=== PATIENT | female | born 1975 | race Caucasian/White ===

== ENCOUNTER 2017-03-08 22:11 | Inpatient (IN) | payer OTHER, MEDICAID ==
[~2017-03-08] VITALS: Ht 162.6 cm; Wt 55.5 kg
[~2017-03-08 22:11] MED LIST: CARV3.12 PO; CARV3.122 PO; CLOP75TA PO; DIGO0.25 PO; DIGO250T PO; FURO-69 PO; FURO40TA4 PO; HYDR-2666 PO; IPRA4AER; NAPR375T3 PO; PANT40TA3 PO; POTA20TA84 PO; POTA40LI3 PO; SILD25TA PO; ZOLP5TAB5 PO
[2017-03-08 23:04] LABS: BASO % 1 % (0-3); EOS % 3 % (0-3); HEMATOCRIT 40.6 % (36.0-47.0); HEMOGLOBIN 14.3 g/dL (12.0-15.5); LYMPH # 2.3 x10^3/uL (1.0-4.8); LYMPH % 24 % (24-48); MEAN CORPUSCULAR HEMOGLOBIN 30 pg (25-35); MEAN CORPUSCULAR HGB CONC 35 g/dL (31-37); MEAN CORPUSCULAR VOLUME 84 fL (79-100); MONO % 12 % (0-9); NEUT % 62 % (31-73); PLATELET COUNT 375 x10^3/uL (140-400); RED BLOOD COUNT 4.84 x10^6/uL (3.50-5.40); RED CELL DISTRIBUTION WIDTH 12.6 % (11.5-14.5); WHITE BLOOD COUNT 9.8 x10^3/uL (4.0-11.0)
--- NOTE | 2017-03-08 23:04 | PHYS DOC ---
Past Medical History Past Medical History: CHF, High Cholesterol, Heart Disease, Vascular Disease, Other Additional Past Medical Histor: CONGENTIAL CARDIAC DEFECT Past Surgical History: Other Additional Past Surgical Histo: CORATATION OF AORTA Alcohol Use: Rarely Drug Use: None Adult General Chief Complaint Chief Complaint: Congestion HPI HPI Patient is a 42 year old female with a significant cardiac history presents with a four-day history of shortness of breath and chest pain. Patient sees Dr. Espino who treated the patient earlier in the week for possible pneumonia with a Z-Donnie. Dr. Espino at the patient in the emergency room for further evaluation and management. She denies any fevers or chills. She has no other complaints. Pertinent physical exam findings: Coarse breath sounds bilaterally 5/6 MEL ED course: Septic workup, EKG, chest x-ray, troponin ordered 2244: EKG NSR 76 no STEMI 2230: Discussed lab results and chest x-ray with the patient and explained to her that we admit her to the hospital 2335: Page Dr. Espino 2341: discussed CC/HPI/PMH with Dr. Espino who will admit Pertinent findings: Right middle lobe pneumonia ED medical decision-making: After reviewing the chart, CC/HPI/PMH, PE, Labs, CXR I believe the patient has acute right middle lobe pneumonia however is not septic but given her negative cardiac history or minute for IV antibiotics. Review of Systems Review of Systems Constitutional: Denies fever or chills [] Eyes: Denies change in visual acuity, redness, or eye pain [] HENT: Denies nasal congestion or sore throat [] Respiratory: SOA Cardiovascular: No additional information not addressed in HPI [] GI: Denies abdominal pain, nausea, vomiting, bloody stools or diarrhea [] : Denies dysuria or hematuria [] Musculoskeletal: Denies back pain or joint pain [] Integument: Denies rash or skin lesions [] Current Medications Current Medications Current Medications Medications (Trade) Dose Ordered Sig/Delmis Start Time Stop Time Status Last Admin Dose Admin Fentanyl Citrate (Fentanyl 2ml Vial) 50 mcg 1X ONCE 03/08/17 23:30 03/08/17 23:31 DC 03/08/17 23:33 50 MCG Levofloxacin/ Dextrose 150 ml @ 100 mls/hr 1X ONCE 03/09/17 00:00 03/09/17 01:29 Morphine Sulfate 4 mg PRN Q2HR PRN 03/08/17 23:45 03/09/17 23:44 Ondansetron HCl (Zofran) 4 mg PRN Q8HRS PRN 03/08/17 23:45 03/09/17 23:44 Allergies Allergies Allergies Coded Allergies Type Severity Reaction Last Updated Verified No Known Drug Allergies 04/02/14 No Physical Exam Physical Exam Constitutional: Well developed, well nourished, no acute distress, non-toxic appearance. [] HENT: Normocephalic, atraumatic, bilateral external ears normal, oropharynx moist, no oral exudates, nose normal. [] Eyes: PERRLA, EOMI, conjunctiva normal, no discharge. [] Neck: Normal range of motion, no tenderness, supple, no stridor. [] Cardiovascular:5/6 murmur with regular rate and rhythm [] Lungs & Thorax: Coarse breath sounds bilaterally [] Abdomen: Bowel sounds normal, soft, no tenderness, no masses, no pulsatile masses. [] Skin: Warm, dry, no erythema, no rash. [] Back: No tenderness, no CVA tenderness. [] Extremities: No tenderness, no cyanosis, no clubbing, ROM intact, no edema. [] Neurologic: Alert and oriented X 3, normal motor function, normal sensory function, no focal deficits noted. [] Psychologic: Affect normal, judgement normal, mood normal. [] Current Patient Data Vital Signs Vital Signs Date Time Temp Pulse Resp B/P (MAP) Pulse Ox O2 Delivery O2 Flow Rate FiO2 03/08/17 22:27 98.4 81 18 116/68 (84) 97 Room Air 98.4 Lab Values Laboratory Tests Test 03/08/17 22:58 03/08/17 23:13 White Blood Count 9.8 x10^3/uL (4.0-11.0) Red Blood Count 4.84 x10^6/uL (3.50-5.40) Hemoglobin 14.3 g/dL (12.0-15.5) Hematocrit 40.6 % (36.0-47.0) Mean Corpuscular Volume 84 fL (79-100) Mean Corpuscular Hemoglobin 30 pg (25-35) Mean Corpuscular Hemoglobin Concent 35 g/dL (31-37) Red Cell Distribution Width 12.6 % (11.5-14.5) Platelet Count 375 x10^3/uL (140-400) Neutrophils (%) (Auto) 62 % (31-73) Lymphocytes (%) (Auto) 24 % (24-48) Monocytes (%) (Auto) 12 % (0-9) H Eosinophils (%) (Auto) 3 % (0-3) Basophils (%) (Auto) 1 % (0-3) Neutrophils # (Auto) 6.0 x10^3uL (1.8-7.7) Lymphocytes # (Auto) 2.3 x10^3/uL (1.0-4.8) Monocytes # (Auto) 1.1 x10^3/uL (0.0-1.1) Eosinophils # (Auto) 0.3 x10^3/uL (0.0-0.7) Basophils # (Auto) 0.0 x10^3/uL (0.0-0.2) Sodium Level 137 mmol/L (136-145) Potassium Level 3.2 mmol/L (3.5-5.1) L Chloride Level 98 mmol/L (98-107) Carbon Dioxide Level 27 mmol/L (21-32) Anion Gap 12 (6-14) Blood Urea Nitrogen 19 mg/dL (7-20) Creatinine 0.7 mg/dL (0.6-1.0) Estimated GFR (Cockcroft-Gault) 91.8 BUN/Creatinine Ratio 27 (6-20) H Glucose Level 114 mg/dL (70-99) H Calcium Level 9.9 mg/dL (8.5-10.1) Total Bilirubin 1.7 mg/dL (0.2-1.0) H Aspartate Amino Transferase (AST) 15 U/L (15-37) Alanine Aminotransferase (ALT) 18 U/L (14-59) Alkaline Phosphatase 62 U/L (46-116) Troponin I Quantitative < 0.017 ng/mL (0.000-0.055) PD-Alc-C-Type Natriuretic Peptide 237 pg/mL (0-124) H Total Protein 8.5 g/dL (6.4-8.2) H Albumin 3.9 g/dL (3.4-5.0) Albumin/Globulin Ratio 0.8 (1.0-1.7) L Urine Collection Type Unknown Urine Color Yellow Urine Clarity Clear Urine pH 5.5 Urine Specific [place] 1.025 Urine Protein Negative mg/dL (NEG-TRACE) Urine Glucose (UA) Negative mg/dL (NEG) Urine Ketones (Stick) Negative mg/dL (NEG) Urine Blood Trace (NEG) Urine Nitrite Negative (NEG) Urine Bilirubin Negative (NEG) Urine Urobilinogen Dipstick 0.2 mg/dL (0.2 mg/dL) Urine Leukocyte Esterase Negative (NEG) Urine RBC 0 /HPF (0-2) Urine WBC 1-4 /HPF (0-4) Urine Squamous Epithelial Cells Mod /LPF Urine Bacteria Few /HPF (0-FEW) Urine Mucus Marked /LPF Laboratory Tests 03/08/17 22:58 Laboratory Tests 03/08/17 22:58 EKG EKG NRS 76 no STEMI[] Radiology/Procedures Radiology/Procedures 2V CXR Right perihilar infiltrates [] Course & Med Decision Making Course & Med Decision Making Pertinent Labs and Imaging studies reviewed. (See chart for details) [] Dragon Disclaimer Dragon Disclaimer This electronic medical record was generated, in whole or in part, using a voice recognition dictation system. Departure Departure Impression: Primary Impression: Right middle lobe pneumonia Additional Impression: Chest pain Admitting Physician: Rd Espino Condition: IMPROVED Referrals: RD ESPINO MD (PCP) Problem Qualifiers Primary Impression: Right middle lobe pneumonia Pneumonia type: due to unspecified organism Qualified Codes: J18.1 - Lobar pneumonia, unspecified organism Additional Impression: Chest pain Chest pain type: unspecified Qualified Codes: R07.9 - Chest pain, unspecified BRUNO RUSHING DO March 08, 2017 23:04
[2017-03-08 23:14] LABS: CALCIUM 9.9 mg/dL (8.5-10.1); CREATININE 0.7 mg/dL (0.6-1.0); GFR 91.8; POTASSIUM 3.2 mmol/L (3.5-5.1)
[2017-03-08 23:20] LABS: ALBUMIN 3.9 g/dL (3.4-5.0); ALBUMIN/GLOBULIN RATIO 0.8 (1.0-1.7); TOTAL BILIRUBIN 1.7 mg/dL (0.2-1.0); TOTAL PROTEIN 8.5 g/dL (6.4-8.2)
[2017-03-08 23:29] LABS: BILIRUBIN,URINE NEGATIVE (NEG); GLUCOSE,URINE NEGATIVE (NEG); NITRITE,URINE NEGATIVE (NEG); PH,URINE 5.5; PROTEIN,URINE NEGATIVE (NEG-TRACE); UROBILINOGEN,URINE 0.2 mg/dL (0.2 mg/dL)
[2017-03-08] MEDS ORDERED: fentaNYL PF VIAL 100 MCG/2 ML VIAL IV ONE (23:30)
[2017-03-08 23:34] LABS: BACTERIA,URINE FEW /HPF (0-FEW); RBC,URINE 0 /HPF (0-2); SQUAMOUS EPITHELIAL CELL,UR MOD /LPF
[2017-03-09] MEDS: MORPHINE SULFATE 4 MG/ML DISP.SYRIN. IV PRN ×4 (00:51→20:15)
[2017-03-09] MEDS: ONDANSETRON PF 4 MG/2 ML VIAL. IV PRN ×3 (02:38→20:16)
[2017-03-09 03:45] VITALS: BP 100/50
[2017-03-09 05:37] LABS: BASO # 0.1 x10^3/uL (0.0-0.2); BASO % 1 % (0-3); EOS % 4 % (0-3); HEMATOCRIT 38.1 % (36.0-47.0); HEMOGLOBIN 13.4 g/dL (12.0-15.5); LYMPH # 2.2 x10^3/uL (1.0-4.8); LYMPH % 25 % (24-48); MEAN CORPUSCULAR HEMOGLOBIN 30 pg (25-35); MEAN CORPUSCULAR HGB CONC 35 g/dL (31-37); MEAN CORPUSCULAR VOLUME 84 fL (79-100); MONO % 14 % (0-9); NEUT % 57 % (31-73); PLATELET COUNT 326 x10^3/uL (140-400); RED BLOOD COUNT 4.53 x10^6/uL (3.50-5.40); RED CELL DISTRIBUTION WIDTH 12.8 % (11.5-14.5); WHITE BLOOD COUNT 8.5 x10^3/uL (4.0-11.0)
[2017-03-09 05:59] LABS: CALCIUM 9.6 mg/dL (8.5-10.1); CREATININE 0.7 mg/dL (0.6-1.0); GFR 91.8; POTASSIUM 3.5 mmol/L (3.5-5.1)
--- NOTE | 2017-03-09 06:51 | EKG ---
[facility] [address] [place] [address] Test Date: 2017-03-08 Test Time: 22:42:44 Pat Name: ANJU ANGEL Department: Room: 211 1 Gender: F Erp Implementation Consultant: : 1975 Requested By: BRUNO RUSHING Order Number: [id number] Reading MD: Ludwin Basilio Measurements Intervals [place] Rate: 76 P: -12 MT: 200 QRS: -68 QRSD: 176 T: 106 QT: 436 QTc: 495 Interpretive Statements SINUS RHYTHM V-PACING Electronically Signed On 03-11-2017 9:53:43 CDT by Ludwin Basilio
[2017-03-09 07:50] VITALS: BP 111/61
--- NOTE | 2017-03-09 08:03 | RAD ---
EXAM: CHEST 2 VIEWS History: Shortness of breath Comparison: 11/16/2016 TECHNIQUE: PA and lateral chest radiographs FINDINGS: Left-sided cardiac pacer is unchanged. The cardiomediastinal silhouette is within normal limits. The lungs are clear bilaterally. The costophrenic sulci are clear and well demarcated bilaterally. IMPRESSION: No radiographic evidence of an acute cardiopulmonary abnormality.
[2017-03-09 11:40] VITALS: BP 102/66
--- NOTE | 2017-03-09 11:56 | PDOC ---
Provider Note Provider Note [id number] dyspnea cough acute bronchitis acute bronchodilator see orders HANSA LAZO MD March 09, 2017 11:56
[2017-03-09] MEDS: IPRATROPIUM BROMIDE 0.5 MG/2.5 ML NEBU. NEB SCH ×3 (12:04→19:34)
[2017-03-09] MEDS: BUDESONIDE 0.5 MG/2 ML NEBU. NEB SCH ×2 (12:04→19:35)
--- NOTE | 2017-03-09 12:09 | PDOC1 ---
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 Due to this she has severe pulmonary hypertension and is being currently evaluated for a future heart transplant. The patient is active and she is a nonsmoker. 4 days ago she was having problems with cough fever or chills and shortness of breath and was started on Levaquin. This did not help at all and she is actually getting worse to the point that yesterday she had to come to the emergency room due to severe dyspnea and respiratory distress and with progressive cough as well as fever and chills. The patient was seen in the ER and he was decided to admit her. At the time that I saw her she was having dyspnea with minimal exertion and if she tried to talk more than a few words she will start severe coughing. No chest pains. No palpitations. No loss of consciousness. She reports that she has been losing weight lately and not eating very much, no appetite. 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) Pulmonary: Asthma, Bronchitis GI: GERD, Gastritis Current Problem List Problem List Problems Medical Problems: (1) Chest pain Status: Acute (2) Right middle lobe pneumonia Status: Acute Problems: Current Medications Current Medications Current Medications Fentanyl Citrate (Fentanyl 2ml Vial) 50 mcg 1X ONCE IV Last administered on 23:33; Start 03/08/17 at 23:30; Stop 03/08/17 at 23:31; Status DC Levofloxacin/ Dextrose 150 ml @ 100 mls/hr 1X ONCE IV Last administered on 23:56; Start 03/09/17 at 00:00; Stop 03/09/17 at 01:29; Status DC Ondansetron HCl (Zofran) 4 mg PRN Q8HRS PRN IV NAUSEA/VOMITING Last administered on 03/09/17 02:38; Start 03/08/17 at 23:45; Stop 03/09/17 at 23:44 Morphine Sulfate 4 mg PRN Q2HR PRN IV SEVERE PAIN Last administered on t 00:51; Start 03/08/17 at 23:45; Stop 03/09/17 at 23:44 Ipratropium [place] (Atrovent) 0.5 mg RTQID NEB ; Start 03/09/17 at 12:00 Budesonide (Pulmicort) 0.5 mg RTBID NEB ; Start 03/09/17 at 12:00 Budesonide (Pulmicort) 0.5 mg RTBID NEB ; Start 03/09/17 at 20:00; Status UNV Ceftriaxone Sodium 1 gm/ Sodium Chloride 50 ml @ 100 mls/hr Q24H IV ; Start at 13:00 Doxycycline Hyclate (Vibra-Tab) 100 mg BID PO ; Start 03/09/17 at 12:00 Pantoprazole Sodium (Protonix) 40 mg DAILYAC PO ; Start 03/09/17 at 12:00 Enoxaparin Sodium (Lovenox 40mg Syringe) 40 mg Q24H SQ ; Start 03/09/17 at 14:00 Active Scripts Active Reported Hydrocodone-Apap 5-325 (Hydrocodone Bit/Acetaminophen) 1 Each Tablet 1 Tab PO PRN Q6HRS PRN Naproxen 375 Mg Tablet 375 Mg PO DAILY K-Tab ER (Potassium Chloride) 20 Meq Tablet.er 40 Meq PO DAILY Furosemide 40 Mg Tablet 1.5 Tab PO DAILY Zolpidem Tartrate 5 Mg Tablet 5 Mg PO QHS Carvedilol 3.125 Mg Tablet 3.125 Mg PO BID Clopidogrel (Clopidogrel Bisulfate) 75 Mg Tablet 1 Tab PO DAILY Digoxin 250 Mcg Tablet 250 Mcg PO DAILY Combivent Respimat Inhal (Ipratropium/Albuterol Sulfate) 4 Gm Aer.w.adap 1 Puff Protonix (Pantoprazole Sodium) 40 Mg Tablet.dr 40 Mg PO DAILY Viagra (Sildenafil Citrate) 25 Mg Tablet 25 Mg PO TID PRN Clopidogrel (Clopidogrel Bisulfate) 75 Mg Tablet 75 Mg PO DAILY Allergies Allergies: Coded Allergies: No Known Drug Allergies (Unverified , 04/02/14) Physical Exam Physical Exam H EENT pupils are reactive, oral mucosa dry. Neck is supple 2 cm JVD. Lungs breath sounds are decreased, no wheezing at this time some rhonchi and bronchioloalveolar sounds. Heart regular rate and rhythm 4/6 pansystolic murmur Abdomen is soft bowel sounds are present. Extremities no edema. Neurological exam was grossly intact. Vitals Vitals Vital Signs Date Time Temp Pulse Resp B/P (MAP) Pulse Ox O2 Delivery O2 Flow Rate FiO2 03/09/17 11:40 97.7 64 17 102/66 (78) 94 Room Air 97.7 Labs Labs Laboratory Tests Test 03/08/17 22:58 03/08/17 23:13 03/08/17 23:35 03/09/17 05:05 White Blood Count 9.8 x10^3/uL (4.0-11.0) 8.5 x10^3/uL (4.0-11.0) Red Blood Count 4.84 x10^6/uL (3.50-5.40) 4.53 x10^6/uL (3.50-5.40) Hemoglobin 14.3 g/dL (12.0-15.5) 13.4 g/dL (12.0-15.5) Hematocrit 40.6 % (36.0-47.0) 38.1 % (36.0-47.0) Mean Corpuscular Volume 84 fL (79-100) 84 fL (79-100) Mean Corpuscular Hemoglobin 30 pg (25-35) 30 pg (25-35) Mean Corpuscular Hemoglobin Concent 35 g/dL (31-37) 35 g/dL (31-37) Red Cell Distribution Width 12.6 % (11.5-14.5) 12.8 % (11.5-14.5) Platelet Count 375 x10^3/uL (140-400) 326 x10^3/uL (140-400) Neutrophils (%) (Auto) 62 % (31-73) 57 % (31-73) Lymphocytes (%) (Auto) 24 % (24-48) 25 % (24-48) Monocytes (%) (Auto) 12 % (0-9) 14 % (0-9) Eosinophils (%) (Auto) 3 % (0-3) 4 % (0-3) Basophils (%) (Auto) 1 % (0-3) 1 % (0-3) Neutrophils # (Auto) 6.0 x10^3uL (1.8-7.7) 4.8 x10^3uL (1.8-7.7) Lymphocytes # (Auto) 2.3 x10^3/uL (1.0-4.8) 2.2 x10^3/uL (1.0-4.8) Monocytes # (Auto) 1.1 x10^3/uL (0.0-1.1) 1.2 x10^3/uL (0.0-1.1) Eosinophils # (Auto) 0.3 x10^3/uL (0.0-0.7) 0.3 x10^3/uL (0.0-0.7) Basophils # (Auto) 0.0 x10^3/uL (0.0-0.2) 0.1 x10^3/uL (0.0-0.2) Sodium Level 137 mmol/L (136-145) 138 mmol/L (136-145) Potassium Level 3.2 mmol/L (3.5-5.1) 3.5 mmol/L (3.5-5.1) Chloride Level 98 mmol/L (98-107) 99 mmol/L (98-107) Carbon Dioxide Level 27 mmol/L (21-32) 27 mmol/L (21-32) Anion Gap 12 (6-14) 12 (6-14) Blood Urea Nitrogen 19 mg/dL (7-20) 19 mg/dL (7-20) Creatinine 0.7 mg/dL (0.6-1.0) 0.7 mg/dL (0.6-1.0) Estimated GFR (Cockcroft-Gault) 91.8 91.8 BUN/Creatinine Ratio 27 (6-20) Glucose Level 114 mg/dL (70-99) 99 mg/dL (70-99) Calcium Level 9.9 mg/dL (8.5-10.1) 9.6 mg/dL (8.5-10.1) Total Bilirubin 1.7 mg/dL (0.2-1.0) Aspartate Amino Transf (AST/SGOT) 15 U/L (15-37) Alanine Aminotransferase (ALT/SGPT) 18 U/L (14-59) Alkaline Phosphatase 62 U/L (46-116) Troponin I Quantitative < 0.017 ng/mL (0.000-0.055) < 0.017 ng/mL (0.000-0.055) KI-Uma-Y-Type Natriuretic Peptide 237 pg/mL (0-124) Total Protein 8.5 g/dL (6.4-8.2) Albumin 3.9 g/dL (3.4-5.0) Albumin/Globulin Ratio 0.8 (1.0-1.7) Urine Collection Type Unknown Urine Color Yellow Urine Clarity Clear Urine pH 5.5 Urine Specific [place] 1.025 Urine Protein Negative mg/dL (NEG-TRACE) Urine Glucose (UA) Negative mg/dL (NEG) Urine Ketones (Stick) Negative mg/dL (NEG) Urine Blood Trace (NEG) Urine Nitrite Negative (NEG) Urine Bilirubin Negative (NEG) Urine Urobilinogen Dipstick 0.2 mg/dL (0.2 mg/dL) Urine Leukocyte Esterase Negative (NEG) Urine RBC 0 /HPF (0-2) Urine WBC 1-4 /HPF (0-4) Urine Squamous Epithelial Cells Mod /LPF Urine Bacteria Few /HPF (0-FEW) Urine Mucus Marked /LPF Lactic Acid Level 0.9 mmol/L (0.4-2.0) Test 03/09/17 11:25 Troponin I Quantitative < 0.017 ng/mL (0.000-0.055) Laboratory Tests Test 03/08/17 22:58 03/08/17 23:13 03/08/17 23:35 03/09/17 05:05 White Blood Count 9.8 x10^3/uL (4.0-11.0) 8.5 x10^3/uL (4.0-11.0) Red Blood Count 4.84 x10^6/uL (3.50-5.40) 4.53 x10^6/uL (3.50-5.40) Hemoglobin 14.3 g/dL (12.0-15.5) 13.4 g/dL (12.0-15.5) Hematocrit 40.6 % (36.0-47.0) 38.1 % (36.0-47.0) Mean Corpuscular Volume 84 fL (79-100) 84 fL (79-100) Mean Corpuscular Hemoglobin 30 pg (25-35) 30 pg (25-35) Mean Corpuscular Hemoglobin Concent 35 g/dL (31-37) 35 g/dL (31-37) Red Cell Distribution Width 12.6 % (11.5-14.5) 12.8 % (11.5-14.5) Platelet Count 375 x10^3/uL (140-400) 326 x10^3/uL (140-400) Neutrophils (%) (Auto) 62 % (31-73) 57 % (31-73) Lymphocytes (%) (Auto) 24 % (24-48) 25 % (24-48) Monocytes (%) (Auto) 12 % (0-9) 14 % (0-9) Eosinophils (%) (Auto) 3 % (0-3) 4 % (0-3) Basophils (%) (Auto) 1 % (0-3) 1 % (0-3) Neutrophils # (Auto) 6.0 x10^3uL (1.8-7.7) 4.8 x10^3uL (1.8-7.7) Lymphocytes # (Auto) 2.3 x10^3/uL (1.0-4.8) 2.2 x10^3/uL (1.0-4.8) Monocytes # (Auto) 1.1 x10^3/uL (0.0-1.1) 1.2 x10^3/uL (0.0-1.1) Eosinophils # (Auto) 0.3 x10^3/uL (0.0-0.7) 0.3 x10^3/uL (0.0-0.7) Basophils # (Auto) 0.0 x10^3/uL (0.0-0.2) 0.1 x10^3/uL (0.0-0.2) Sodium Level 137 mmol/L (136-145) 138 mmol/L (136-145) Potassium Level 3.2 mmol/L (3.5-5.1) 3.5 mmol/L (3.5-5.1) Chloride Level 98 mmol/L (98-107) 99 mmol/L (98-107) Carbon Dioxide Level 27 mmol/L (21-32) 27 mmol/L (21-32) Anion Gap 12 (6-14) 12 (6-14) Blood Urea Nitrogen 19 mg/dL (7-20) 19 mg/dL (7-20) Creatinine 0.7 mg/dL (0.6-1.0) 0.7 mg/dL (0.6-1.0) Estimated GFR (Cockcroft-Gault) 91.8 91.8 BUN/Creatinine Ratio 27 (6-20) Glucose Level 114 mg/dL (70-99) 99 mg/dL (70-99) Calcium Level 9.9 mg/dL (8.5-10.1) 9.6 mg/dL (8.5-10.1) Total Bilirubin 1.7 mg/dL (0.2-1.0) Aspartate Amino Transf (AST/SGOT) 15 U/L (15-37) Alanine Aminotransferase (ALT/SGPT) 18 U/L (14-59) Alkaline Phosphatase 62 U/L (46-116) Troponin I Quantitative < 0.017 ng/mL (0.000-0.055) < 0.017 ng/mL (0.000-0.055) ND-Tof-N-Type Natriuretic Peptide 237 pg/mL (0-124) Total Protein 8.5 g/dL (6.4-8.2) Albumin 3.9 g/dL (3.4-5.0) Albumin/Globulin Ratio 0.8 (1.0-1.7) Urine Collection Type Unknown Urine Color Yellow Urine Clarity Clear Urine pH 5.5 Urine Specific [place] 1.025 Urine Protein Negative mg/dL (NEG-TRACE) Urine Glucose (UA) Negative mg/dL (NEG) Urine Ketones (Stick) Negative mg/dL (NEG) Urine Blood Trace (NEG) Urine Nitrite Negative (NEG) Urine Bilirubin Negative (NEG) Urine Urobilinogen Dipstick 0.2 mg/dL (0.2 mg/dL) Urine Leukocyte Esterase Negative (NEG) Urine RBC 0 /HPF (0-2) Urine WBC 1-4 /HPF (0-4) Urine Squamous Epithelial Cells Mod /LPF Urine Bacteria Few /HPF (0-FEW) Urine Mucus Marked /LPF Lactic Acid Level 0.9 mmol/L (0.4-2.0) Test 03/09/17 11:25 Troponin I Quantitative < 0.017 ng/mL (0.000-0.055) VTE Prophylaxis Ordered VTE Prophylaxis Devices: No VTE Pharmacological Prophylaxi: Yes Assessment/Plan Assessment/Plan This patient comes in with acute respiratory failure due to a acute bronchitis or possible pneumonia that did not respond to treatment as an outpatient. Therefore I recommend for the patient to be admitted and will get her started on IV antibiotics and get a pulmonary consult. She has long and stents since cardiac history with congenital heart disease and may go into heart failure very easily. ARASH PERSON MD March 09, 2017 12:09
[2017-03-09] MEDS: PANTOPRAZOLE 40 MG TABLET.DR. PO SCH (12:33)
[2017-03-09] MEDS: DOXYCYCLINE HYCLATE 100 MG TABLET PO SCH ×2 (12:33→20:24)
[2017-03-09] MEDS ORDERED: HYDROcodone/APAP 5/325MG 1 TAB TABLET PO PRN (13:15)
[2017-03-09] MEDS ORDERED: SILD20TA PO (13:17)
[2017-03-09] MEDS ORDERED: CLOPIDOGREL BISULFATE 75 MG TABLET PO SCH (14:00)
[2017-03-09] MEDS ORDERED: NAPROXEN 250 MG TABLET PO SCH (14:00)
[2017-03-09] MEDS ORDERED: FUROSEMIDE 20 MG TABLET PO SCH (14:00)
[2017-03-09] MEDS ORDERED: SILDENAFIL CITRATE 20 MG TABLET. PO SCH (14:00)
[2017-03-09] MEDS ORDERED: POTASSIUM CHLORIDE 20 MEQ TABLET.ER. PO SCH (14:00)
--- NOTE | 2017-03-09 14:07 | CONS ---
DATE OF CONSULTATION: 03/09/2017 I was asked to see this 42-year-old lady for pneumonia. HISTORY OF PRESENT ILLNESS: She has history of congenital heart disease with transposition of great vessels status post surgery as a child. She also has severe pulmonary hypertension. She has not felt good for the past week, she has had cough with a greenish sputum production and wheezing, runny nose. She denies gastroesophageal reflux symptoms. She had diarrhea for 1 day. She was given Levaquin for 7 days, she took it for 3 days with not improvement of her symptoms. She feels tired. She has had fever and chills. PAST MEDICAL HISTORY: Congenital heart disease as mentioned as above, pulmonary hypertension, status post pacemaker placement, coarctation of aorta, tricuspid insufficiency and mitral insufficiency. SOCIAL HISTORY: Remote history of minimal smoking. FAMILY HISTORY: No history of lung disease. MEDICATIONS: The patient was given 1 dose of Levaquin in the Emergency Room. ALLERGIES: No known drug allergies. REVIEW OF SYSTEMS: As mentioned as above, other systems otherwise negative. PHYSICAL EXAMINATION: GENERAL: This is a well-developed lady. VITAL SIGNS: Her O2 saturation is 97%, respiratory rate 18, heart rate 63, blood pressure 111/61 and temperature 98.3. HEENT: Normocephalic, atraumatic. Pupils are equal, round and reactive to light. Throat is clear. Nose: There is inflamed mucosa. NECK: There is no JVD, lymphadenopathy or thyromegaly. CARDIOVASCULAR: Regular rate and rhythm, positive for murmur. CHEST: Inspection is normal. LUNGS: There are few end-expiratory wheezing. ABDOMEN: Soft. Bowel sounds are good. There is no mass. EXTREMITIES: There is no edema. LYMPHATICS: There is no lymphadenopathy. SKIN: Warm. NEUROLOGIC: Alert and oriented. LABORATORY DATA: I reviewed the following lab data: Chest x-ray does not show any acute abnormality and a pacemaker in place. Sodium 138, potassium 3.5, chloride 99, CO2 of 27, glucose 99, BUN 19, creatinine 0.7. Troponin less than 0.01. BNP 237. WBC 8.5, hemoglobin 13.4, platelets at 326. IMPRESSION: 1. Dyspnea and cough. 2. Acute bronchitis versus pneumonia. 3. Acute bronchospasm with wheezing. 4. Congenital heart disease. 5. Pulmonary hypertension. PLAN AND RECOMMENDATIONS: 1. Titrate FiO2 to keep O2 saturation 92%. 2. Bronchodilator Atrovent only. The patient has history of tachyarrhythmia, avoid albuterol. 3. Start Rocephin and doxycycline. 4. Nasal swab for influenza A and B. 5. Sputum culture. 6. Lovenox for DVT prophylaxis. 7. Protonix for stress ulcer prophylaxis. 8. Inhaled corticosteroid, she may require systemic steroid. 9. If her symptoms do not improve, I do recommend a CT of the chest 10. The findings and recommendations were discussed with the patient. She understood and agreed to proceed with the plan. I have answered all of her questions. Thank you very much for allowing me to participate in care of this very nice lady. HANSA LAZO M.D. KEVIN Osman JOB#: [id number] / [id number] LUANN
[2017-03-09 14:32] LABS: OBC FLU VALID
[2017-03-09] MEDS ORDERED: POTA20LI27 PEG (14:54)
[2017-03-09] MEDS ORDERED: TORS20TA2 PO (14:54)
[2017-03-09 15:00] VITALS: BP 103/60
[2017-03-09] MEDS: DIGOXIN 250 MCG TABLET. PO SCH (16:02)
[2017-03-09] MEDS: CARVEDILOL 3.125 MG TABLET. PO SCH (16:02)
[2017-03-09] MEDS: ENOXAPARIN 40 MG/0.4 ML SYRINGE. SQ SCH (16:03)
[2017-03-09 19:50] VITALS: BP 92/48
[2017-03-09] MEDS ORDERED: BUDESONIDE 0.5 MG/2 ML NEBU. NEB SCH (20:00)
[2017-03-09] MEDS: ZOLPIDEM 5 MG TABLET. PO SCH (20:24)
[2017-03-09] MEDS ORDERED: ZOLPIDEM 5 MG TABLET. PO SCH (21:00)
[2017-03-09 23:25] VITALS: BP 100/43
[2017-03-10 03:35] VITALS: BP 97/57
[2017-03-10 07:00] VITALS: BP 93/50
[2017-03-10] MEDS: CARVEDILOL 3.125 MG TABLET. PO SCH ×2 (08:00→17:00)
[2017-03-10] MEDS: IPRATROPIUM BROMIDE 0.5 MG/2.5 ML NEBU. NEB SCH ×4 (08:12→19:54)
[2017-03-10] MEDS: BUDESONIDE 0.5 MG/2 ML NEBU. NEB SCH ×2 (08:12→19:54)
[2017-03-10] MEDS: POTASSIUM CHLORIDE 20 MEQ/15 ML ORAL LIQUID. PO SCH (08:50)
[2017-03-10] MEDS: DOXYCYCLINE HYCLATE 100 MG TABLET PO SCH ×2 (08:50→20:19)
[2017-03-10] MEDS: TORSEMIDE 20 MG TABLET. PO SCH (08:50)
[2017-03-10] MEDS: PANTOPRAZOLE 40 MG TABLET.DR. PO SCH (08:50)
[2017-03-10] MEDS ORDERED: MORPHINE SULFATE 2 MG/ML DISP.SYRIN. IV PRN (09:00)
[2017-03-10] MEDS: DIGOXIN 250 MCG TABLET. PO SCH (09:00)
--- NOTE | 2017-03-10 09:13 | PDOC ---
PULMONARY PROGRESS NOTES Subjective MILD COUGH Vitals Vital Signs Date Time Temp Pulse Resp B/P (MAP) Pulse Ox O2 Delivery O2 Flow Rate FiO2 03/10/17 08:13 99 Room Air 03/10/17 07:00 97.5 60 16 93/50 (64) 97.5 General: Alert, No acute distress Lungs: Clear Cardiovascular: S1 Abdomen: Soft Neuro Exam: Alert Extremities: No Edema Skin: Warm Labs Laboratory Tests Test 03/08/17 22:58 03/08/17 23:13 03/08/17 23:35 03/09/17 05:05 White Blood Count 9.8 x10^3/uL (4.0-11.0) 8.5 x10^3/uL (4.0-11.0) Red Blood Count 4.84 x10^6/uL (3.50-5.40) 4.53 x10^6/uL (3.50-5.40) Hemoglobin 14.3 g/dL (12.0-15.5) 13.4 g/dL (12.0-15.5) Hematocrit 40.6 % (36.0-47.0) 38.1 % (36.0-47.0) Mean Corpuscular Volume 84 fL (79-100) 84 fL (79-100) Mean Corpuscular Hemoglobin 30 pg (25-35) 30 pg (25-35) Mean Corpuscular Hemoglobin Concent 35 g/dL (31-37) 35 g/dL (31-37) Red Cell Distribution Width 12.6 % (11.5-14.5) 12.8 % (11.5-14.5) Platelet Count 375 x10^3/uL (140-400) 326 x10^3/uL (140-400) Neutrophils (%) (Auto) 62 % (31-73) 57 % (31-73) Lymphocytes (%) (Auto) 24 % (24-48) 25 % (24-48) Monocytes (%) (Auto) 12 % (0-9) 14 % (0-9) Eosinophils (%) (Auto) 3 % (0-3) 4 % (0-3) Basophils (%) (Auto) 1 % (0-3) 1 % (0-3) Neutrophils # (Auto) 6.0 x10^3uL (1.8-7.7) 4.8 x10^3uL (1.8-7.7) Lymphocytes # (Auto) 2.3 x10^3/uL (1.0-4.8) 2.2 x10^3/uL (1.0-4.8) Monocytes # (Auto) 1.1 x10^3/uL (0.0-1.1) 1.2 x10^3/uL (0.0-1.1) Eosinophils # (Auto) 0.3 x10^3/uL (0.0-0.7) 0.3 x10^3/uL (0.0-0.7) Basophils # (Auto) 0.0 x10^3/uL (0.0-0.2) 0.1 x10^3/uL (0.0-0.2) Sodium Level 137 mmol/L (136-145) 138 mmol/L (136-145) Potassium Level 3.2 mmol/L (3.5-5.1) 3.5 mmol/L (3.5-5.1) Chloride Level 98 mmol/L (98-107) 99 mmol/L (98-107) Carbon Dioxide Level 27 mmol/L (21-32) 27 mmol/L (21-32) Anion Gap 12 (6-14) 12 (6-14) Blood Urea Nitrogen 19 mg/dL (7-20) 19 mg/dL (7-20) Creatinine 0.7 mg/dL (0.6-1.0) 0.7 mg/dL (0.6-1.0) Estimated GFR (Cockcroft-Gault) 91.8 91.8 BUN/Creatinine Ratio 27 (6-20) Glucose Level 114 mg/dL (70-99) 99 mg/dL (70-99) Calcium Level 9.9 mg/dL (8.5-10.1) 9.6 mg/dL (8.5-10.1) Total Bilirubin 1.7 mg/dL (0.2-1.0) Aspartate Amino Transf (AST/SGOT) 15 U/L (15-37) Alanine Aminotransferase (ALT/SGPT) 18 U/L (14-59) Alkaline Phosphatase 62 U/L (46-116) Troponin I Quantitative < 0.017 ng/mL (0.000-0.055) < 0.017 ng/mL (0.000-0.055) LN-Xbw-[id number]-Type Natriuretic Peptide 237 pg/mL (0-124) Total Protein 8.5 g/dL (6.4-8.2) Albumin 3.9 g/dL (3.4-5.0) Albumin/Globulin Ratio 0.8 (1.0-1.7) Urine Collection Type Unknown Urine Color Yellow Urine Clarity Clear Urine pH 5.5 Urine Specific [place] 1.025 Urine Protein Negative mg/dL (NEG-TRACE) Urine Glucose (UA) Negative mg/dL (NEG) Urine Ketones (Stick) Negative mg/dL (NEG) Urine Blood Trace (NEG) Urine Nitrite Negative (NEG) Urine Bilirubin Negative (NEG) Urine Urobilinogen Dipstick 0.2 mg/dL (0.2 mg/dL) Urine Leukocyte Esterase Negative (NEG) Urine RBC 0 /HPF (0-2) Urine WBC 1-4 /HPF (0-4) Urine Squamous Epithelial Cells Mod /LPF Urine Bacteria Few /HPF (0-FEW) Urine Mucus Marked /LPF Lactic Acid Level 0.9 mmol/L (0.4-2.0) Test 03/09/17 11:25 03/09/17 13:00 Troponin I Quantitative < 0.017 ng/mL (0.000-0.055) Influenza Type A Antigen Negative (NEGATIVE) Influenza Type B Antigen Negative (NEGATIVE) Laboratory Tests Test 03/09/17 11:25 03/09/17 13:00 Troponin I Quantitative < 0.017 ng/mL (0.000-0.055) Influenza Type A Antigen Negative (NEGATIVE) Influenza Type B Antigen Negative (NEGATIVE) Medications Active Scripts Medications Dose Route/Sig Max Daily Dose Days Date Category Potassium Chloride Oral Liquid (Potassium Chloride) 20 Meq/15 Ml Liquid 20 Meq PEG DAILY 03/09/17 Reported Torsemide 20 Mg Tablet 1 Tab PO DAILY 03/09/17 Reported Hydrocodone-Apap 5-325 (Hydrocodone Bit/Acetaminophen) 1 Each Tablet 1 Tab PO PRN Q6HRS PRN 11/20/16 Reported Zolpidem Tartrate 5 Mg Tablet 2.5 Mg PO QHS 11/16/16 Reported Carvedilol 3.125 Mg Tablet 3.125 Mg PO BID 11/16/16 Reported Clopidogrel (Clopidogrel Bisulfate) 75 Mg Tablet 1 Tab PO DAILY 11/16/16 Reported Digoxin 250 Mcg Tablet 250 Mcg PO DAILY 11/16/16 Reported Combivent Respimat Inhal (Ipratropium/Albuterol Sulfate) 4 Gm Aer.w.adap 1 Puff 11/16/16 Reported Protonix (Pantoprazole Sodium) 40 Mg Tablet.dr 40 Mg PO DAILY 04/03/14 Reported Clopidogrel (Clopidogrel Bisulfate) 75 Mg Tablet 75 Mg PO DAILY 04/02/14 Reported Impression . 1. Dyspnea and cough. 2. Acute bronchitis 3. Acute bronchospasm with wheezing.resolved 4. Congenital heart disease. 5. Pulmonary hypertension. 6. clear CXR Plan . 1. Titrate FiO2 to keep O2 saturation 92%. 2. Bronchodilator Atrovent only. The patient has history of tachyarrhythmia, avoid albuterol. 3. can change to PO antibiotics 4. Inhaled corticosteroid, she may require systemic steroid. 5. can go home today EMIR CHAUDHARI MD March 10, 2017 09:13
[2017-03-10 10:18] VITALS: BP 118/67
[2017-03-10] MEDS: ENOXAPARIN 40 MG/0.4 ML SYRINGE. SQ SCH (14:26)
[2017-03-10 15:00] VITALS: BP 96/55
[2017-03-10] MEDS: oxyCODONE/APAP 10/325 1 TAB TABLET PO PRN ×2 (16:46→23:47)
--- NOTE | 2017-03-10 18:05 | PDOC ---
PROGRESS NOTES Subjective Subjective Less short of breath, less cough. Feels very weak, is not sure that she can get up and be around. Objective Objective Vital Signs Date Time Temp Pulse Resp B/P (MAP) Pulse Ox O2 Delivery O2 Flow Rate FiO2 03/10/17 16:46 Room Air 03/10/17 16:06 99 03/10/17 15:00 98.2 62 14 96/55 (69) 98.2 Intake and Output 03/10/17 07:00 Intake Total 410 ml Output Total 300 ml Balance 110 ml Intake Oral 360 ml Other 50 ml Output Urine Total 300 ml Physical Exam Physical Exam Moving air better. No significant changes in cardiac exam. Assessment Assessment The patient seems to be doing a little better today. I agree with Dr. Montgomery's plan and with his antibiotic recommendations. She is very weak and is also very brittle and tends to go into heart failure very easily therefore I would like to monitor her until the morning and if she is stable then she may go home in a.m. Comment Review of Relevant I have reviewed the following items yolie (where applicable) has been applied. Labs Laboratory Tests Test 03/08/17 22:58 03/08/17 23:13 03/08/17 23:35 03/09/17 05:05 White Blood Count 9.8 x10^3/uL (4.0-11.0) 8.5 x10^3/uL (4.0-11.0) Red Blood Count 4.84 x10^6/uL (3.50-5.40) 4.53 x10^6/uL (3.50-5.40) Hemoglobin 14.3 g/dL (12.0-15.5) 13.4 g/dL (12.0-15.5) Hematocrit 40.6 % (36.0-47.0) 38.1 % (36.0-47.0) Mean Corpuscular Volume 84 fL (79-100) 84 fL (79-100) Mean Corpuscular Hemoglobin 30 pg (25-35) 30 pg (25-35) Mean Corpuscular Hemoglobin Concent 35 g/dL (31-37) 35 g/dL (31-37) Red Cell Distribution Width 12.6 % (11.5-14.5) 12.8 % (11.5-14.5) Platelet Count 375 x10^3/uL (140-400) 326 x10^3/uL (140-400) Neutrophils (%) (Auto) 62 % (31-73) 57 % (31-73) Lymphocytes (%) (Auto) 24 % (24-48) 25 % (24-48) Monocytes (%) (Auto) 12 % (0-9) 14 % (0-9) Eosinophils (%) (Auto) 3 % (0-3) 4 % (0-3) Basophils (%) (Auto) 1 % (0-3) 1 % (0-3) Neutrophils # (Auto) 6.0 x10^3uL (1.8-7.7) 4.8 x10^3uL (1.8-7.7) Lymphocytes # (Auto) 2.3 x10^3/uL (1.0-4.8) 2.2 x10^3/uL (1.0-4.8) Monocytes # (Auto) 1.1 x10^3/uL (0.0-1.1) 1.2 x10^3/uL (0.0-1.1) Eosinophils # (Auto) 0.3 x10^3/uL (0.0-0.7) 0.3 x10^3/uL (0.0-0.7) Basophils # (Auto) 0.0 x10^3/uL (0.0-0.2) 0.1 x10^3/uL (0.0-0.2) Sodium Level 137 mmol/L (136-145) 138 mmol/L (136-145) Potassium Level 3.2 mmol/L (3.5-5.1) 3.5 mmol/L (3.5-5.1) Chloride Level 98 mmol/L (98-107) 99 mmol/L (98-107) Carbon Dioxide Level 27 mmol/L (21-32) 27 mmol/L (21-32) Anion Gap 12 (6-14) 12 (6-14) Blood Urea Nitrogen 19 mg/dL (7-20) 19 mg/dL (7-20) Creatinine 0.7 mg/dL (0.6-1.0) 0.7 mg/dL (0.6-1.0) Estimated GFR (Cockcroft-Gault) 91.8 91.8 BUN/Creatinine Ratio 27 (6-20) Glucose Level 114 mg/dL (70-99) 99 mg/dL (70-99) Calcium Level 9.9 mg/dL (8.5-10.1) 9.6 mg/dL (8.5-10.1) Total Bilirubin 1.7 mg/dL (0.2-1.0) Aspartate Amino Transf (AST/SGOT) 15 U/L (15-37) Alanine Aminotransferase (ALT/SGPT) 18 U/L (14-59) Alkaline Phosphatase 62 U/L (46-116) Troponin I Quantitative < 0.017 ng/mL (0.000-0.055) < 0.017 ng/mL (0.000-0.055) SB-Shk-Y-Type Natriuretic Peptide 237 pg/mL (0-124) Total Protein 8.5 g/dL (6.4-8.2) Albumin 3.9 g/dL (3.4-5.0) Albumin/Globulin Ratio 0.8 (1.0-1.7) Urine Collection Type Unknown Urine Color Yellow Urine Clarity Clear Urine pH 5.5 Urine Specific [place] 1.025 Urine Protein Negative mg/dL (NEG-TRACE) Urine Glucose (UA) Negative mg/dL (NEG) Urine Ketones (Stick) Negative mg/dL (NEG) Urine Blood Trace (NEG) Urine Nitrite Negative (NEG) Urine Bilirubin Negative (NEG) Urine Urobilinogen Dipstick 0.2 mg/dL (0.2 mg/dL) Urine Leukocyte Esterase Negative (NEG) Urine RBC 0 /HPF (0-2) Urine WBC 1-4 /HPF (0-4) Urine Squamous Epithelial Cells Mod /LPF Urine Bacteria Few /HPF (0-FEW) Urine Mucus Marked /LPF Lactic Acid Level 0.9 mmol/L (0.4-2.0) Test 03/09/17 11:25 03/09/17 13:00 Troponin I Quantitative < 0.017 ng/mL (0.000-0.055) Influenza Type A Antigen Negative (NEGATIVE) Influenza Type B Antigen Negative (NEGATIVE) Microbiology 03/08/17 Blood Culture - Preliminary, Resulted NO GROWTH AFTER 1 DAY 03/10/17 Gram Stain - Final, Complete Medications Current Medications Fentanyl Citrate (Fentanyl 2ml Vial) 50 mcg 1X ONCE IV Last administered on 23:33; Start 03/08/17 at 23:30; Stop 03/08/17 at 23:31; Status DC Levofloxacin/ Dextrose 150 ml @ 100 mls/hr 1X ONCE IV Last administered on 23:56; Start 03/09/17 at 00:00; Stop 03/09/17 at 01:29; Status DC Ondansetron HCl (Zofran) 4 mg PRN Q8HRS PRN IV NAUSEA/VOMITING Last administered on 03/09/17 20:16; Start 03/08/17 at 23:45; Stop 03/09/17 at 23:44 ; Status DC Morphine Sulfate 4 mg PRN Q2HR PRN IV SEVERE PAIN Last administered on 20:15; Start 03/08/17 at 23:45; Stop 03/09/17 at 23:44; Status DC Ipratropium [place] (Atrovent) 0.5 mg RTQID NEB Last administered on 03/10/17 16:05; Start 03/09/17 at 12:00 Budesonide (Pulmicort) 0.5 mg RTBID NEB Last administered on 03/10/17 08:12; Start 03/09/17 at 12:00 Budesonide (Pulmicort) 0.5 mg RTBID NEB ; Start 03/09/17 at 20:00; Status UNV Ceftriaxone Sodium 1 gm/ Sodium Chloride 50 ml @ 100 mls/hr Q24H IV Last administered on 03/09/17 12:33; Start 03/09/17 at 13:00; Stop 03/10/17 at 09:41 ; Status DC Doxycycline Hyclate (Vibra-Tab) 100 mg BID PO Last administered on 03/10/17 08 :50; Start 03/09/17 at 12:00 Pantoprazole Sodium (Protonix) 40 mg DAILYAC PO Last administered on 03/10/17 08:50; Start 03/09/17 at 12:00 Enoxaparin Sodium (Lovenox 40mg Syringe) 40 mg Q24H SQ Last administered on 14:26; Start 03/09/17 at 14:00 Carvedilol (Coreg) 3.125 mg BIDWMEALS PO Last administered on 03/09/17 16:02; Start 03/09/17 at 17:00 Clopidogrel Bisulfate (Plavix) 75 mg DAILY PO ; Start 03/09/17 at 14:00; Stop at 14:21; Status DC Digoxin (Lanoxin) 250 mcg DAILY PO Last administered on 03/09/17 16:02; Start 03/09/17 at 14:00 Furosemide (Lasix) 60 mg DAILY PO ; Start 03/09/17 at 14:00; Stop 03/09/17 at 15 :45; Status DC Acetaminophen/ Hydrocodone Bitart (Lortab 5/325) 1 tab PRN Q6HRS PRN PO PAIN Last administered on 03/09/17 20:25; Start 03/09/17 at 13:15 Zolpidem Tartrate (Ambien) 5 mg QHS PO ; Start 03/09/17 at 21:00; Stop 03/09/17 at 21:00; Status DC Naproxen (Naprosyn) 375 mg DAILY PO ; Start 03/09/17 at 14:00; Stop 03/09/17 at 15:45; Status DC Potassium Chloride (Klor-Con) 40 meq DAILYWBKFT PO ; Start 03/09/17 at 14:00; Stop 03/09/17 at 15:45; Status DC Sildenafil Citrate (Revatio) 20 mg TID PO ; Start 03/09/17 at 14:00; Stop at 14:06; Status DC Zolpidem Tartrate (Ambien) 2.5 mg QHS PO Last administered on 03/09/17 20:24; Start 03/09/17 at 21:00 Torsemide (Demadex) 20 mg DAILY PO Last administered on 03/10/17 08:50; Start 03/10/17 at 09:00 Potassium Chloride (KCl Oral Soln) 20 meq DAILY PO Last administered on 08:50; Start 03/10/17 at 09:00 Morphine Sulfate 2 mg PRN Q4HRS PRN IV PAIN Last administered on 03/10/17 10: 29; Start 03/10/17 at 09:00 Oxycodone/ Acetaminophen (Percocet 10/325) 1 tab PRN Q6HRS PRN PO PAIN Last administered on 03/10/17t 16:46; Start 03/10/17 at 16:30 Active Scripts Active Reported Potassium Chloride Oral Liquid (Potassium Chloride) 20 Meq/15 Ml Liquid 20 Meq PEG DAILY Torsemide 20 Mg Tablet 1 Tab PO DAILY Hydrocodone-Apap 5-325 (Hydrocodone Bit/Acetaminophen) 1 Each Tablet 1 Tab PO PRN Q6HRS PRN Zolpidem Tartrate 5 Mg Tablet 2.5 Mg PO QHS Carvedilol 3.125 Mg Tablet 3.125 Mg PO BID Clopidogrel (Clopidogrel Bisulfate) 75 Mg Tablet 1 Tab PO DAILY Digoxin 250 Mcg Tablet 250 Mcg PO DAILY Combivent Respimat Inhal (Ipratropium/Albuterol Sulfate) 4 Gm Aer.w.adap 1 Puff Protonix (Pantoprazole Sodium) 40 Mg Tablet.dr 40 Mg PO DAILY Clopidogrel (Clopidogrel Bisulfate) 75 Mg Tablet 75 Mg PO DAILY Vitals/I & O Vital Sign - Last 24 Hours 03/09/17 03/09/17 03/09/17 03/09/17 19:36 19:37 19:50 20:00 Temp 98.6 98.6 Pulse 60 Resp 18 B/P (MAP) 92/48 (63) Pulse Ox 100 100 98 O2 Delivery Room Air Room Air Room Air Room Air 03/09/17 03/09/17 03/09/17 03/09/17 20:15 20:25 20:50 21:26 Resp 20 20 20 20 Pulse Ox 100 100 100 100 O2 Delivery Room Air Room Air Room Air Room Air 03/09/17 03/10/17 03/10/17 03/10/17 23:25 03:35 07:00 08:00 Temp 97.8 97.9 97.5 97.8 97.9 97.5 Pulse 68 61 60 Resp 18 18 16 B/P (MAP) 100/43 (62) 97/57 (70) 93/50 (64) Pulse Ox 98 98 100 O2 Delivery Room Air Room Air Room Air Room Air 03/10/17 03/10/17 03/10/17 03/10/17 08:12 08:13 10:18 10:29 Temp 98.7 98.7 Pulse 76 Resp 17 16 B/P (MAP) 118/67 (84) Pulse Ox 99 99 99 O2 Delivery Room Air Room Air Room Air Room Air 03/10/17 03/10/17 03/10/17 03/10/17 11:15 11:54 15:00 16:06 Temp 98.2 98.2 Pulse 62 Resp 14 B/P (MAP) 96/55 (69) Pulse Ox 99 98 99 O2 Delivery Room Air Room Air Room Air Room Air 03/10/17 16:46 O2 Delivery Room Air Intake and Output 03/09/17 03/09/17 03/10/17 15:00 23:00 07:00 Intake Total 50 ml 360 ml Output Total 300 ml Balance 50 ml 60 ml ARASH PERSON MD March 10, 2017 18:05
[2017-03-10 19:17] VITALS: BP 105/55
[2017-03-10] MEDS ORDERED: ONDANSETRON PF 4 MG/2 ML VIAL. IV PRN (20:00)
[2017-03-10] MEDS ORDERED: ONDANSETRON PF 4 MG/2 ML VIAL. ONE (20:01)
[2017-03-10] MEDS: ZOLPIDEM 5 MG TABLET. PO SCH (20:19)
[2017-03-10] MEDS: ONDANSETRON PF 4 MG/2 ML VIAL. IV PRN (20:20)
[2017-03-10 22:44] VITALS: BP 104/54
[2017-03-11 02:39] VITALS: BP 100/58
[2017-03-11 07:49] VITALS: BP 102/55
[2017-03-11] MEDS: IPRATROPIUM BROMIDE 0.5 MG/2.5 ML NEBU. NEB SCH ×3 (07:59→15:43)
[2017-03-11] MEDS: BUDESONIDE 0.5 MG/2 ML NEBU. NEB SCH (07:59)
[2017-03-11] MEDS: POTASSIUM CHLORIDE 20 MEQ/15 ML ORAL LIQUID. PO SCH (09:24)
[2017-03-11] MEDS: DOXYCYCLINE HYCLATE 100 MG TABLET PO SCH (09:24)
[2017-03-11] MEDS: TORSEMIDE 20 MG TABLET. PO SCH (09:25)
[2017-03-11] MEDS: CARVEDILOL 3.125 MG TABLET. PO SCH ×2 (09:25→17:00)
[2017-03-11] MEDS: PANTOPRAZOLE 40 MG TABLET.DR. PO SCH (09:25)
[2017-03-11] MEDS: DIGOXIN 250 MCG TABLET. PO SCH (09:27)
[2017-03-11] MEDS: oxyCODONE/APAP 10/325 1 TAB TABLET PO PRN ×2 (09:51→15:58)
[2017-03-11 11:00] VITALS: BP 97/55
--- NOTE | 2017-03-11 11:19 | PDOC ---
PULMONARY PROGRESS NOTES Subjective MILD COUGH, better Vitals Vital Signs Date Time Temp Pulse Resp B/P (MAP) Pulse Ox O2 Delivery O2 Flow Rate FiO2 03/11/17 09:51 Room Air 03/11/17 09:27 72 102/55 03/11/17 07:49 98.3 16 97 98.3 General: Alert, No acute distress Lungs: Clear Cardiovascular: S1 Abdomen: Soft Neuro Exam: Alert Extremities: No Edema Skin: Warm Labs Laboratory Tests Test 03/09/17 11:25 03/09/17 13:00 Troponin I Quantitative < 0.017 ng/mL (0.000-0.055) Influenza Type A Antigen Negative (NEGATIVE) Influenza Type B Antigen Negative (NEGATIVE) Medications Active Scripts Medications Dose Route/Sig Max Daily Dose Days Date Category Potassium Chloride Oral Liquid (Potassium Chloride) 20 Meq/15 Ml Liquid 20 Meq PEG DAILY 03/09/17 Reported Torsemide 20 Mg Tablet 1 Tab PO DAILY 03/09/17 Reported Hydrocodone-Apap 5-325 (Hydrocodone Bit/Acetaminophen) 1 Each Tablet 1 Tab PO PRN Q6HRS PRN 11/20/16 Reported Zolpidem Tartrate 5 Mg Tablet 2.5 Mg PO QHS 11/16/16 Reported Carvedilol 3.125 Mg Tablet 3.125 Mg PO BID 11/16/16 Reported Clopidogrel (Clopidogrel Bisulfate) 75 Mg Tablet 1 Tab PO DAILY 11/16/16 Reported Digoxin 250 Mcg Tablet 250 Mcg PO DAILY 11/16/16 Reported Combivent Respimat Inhal (Ipratropium/Albuterol Sulfate) 4 Gm Aer.w.adap 1 Puff 11/16/16 Reported Protonix (Pantoprazole Sodium) 40 Mg Tablet.dr 40 Mg PO DAILY 04/03/14 Reported Clopidogrel (Clopidogrel Bisulfate) 75 Mg Tablet 75 Mg PO DAILY 04/02/14 Reported Impression . 1. Dyspnea and cough. 2. Acute bronchitis 3. Acute bronchospasm with wheezing.resolved 4. Congenital heart disease. 5. Pulmonary hypertension. 6. clear CXR Plan . 1. Titrate FiO2 to keep O2 saturation 92%. 2. Bronchodilator Atrovent only. The patient has history of tachyarrhythmia, avoid albuterol. 3. PO antibiotics 4. Inhaled corticosteroid, flovent at dc 5. can go home today EMIR CHAUDHARI MD March 11, 2017 11:19
[2017-03-11] MEDS ORDERED: CARV3.12 PO (13:49)
[2017-03-11] MEDS: ENOXAPARIN 40 MG/0.4 ML SYRINGE. SQ SCH (14:00)
[2017-03-11] MEDS ORDERED: OXYC-250 PO (14:36)
[2017-03-11 15:00] VITALS: BP 97/55
[2017-03-11] MEDS: ONDANSETRON PF 4 MG/2 ML VIAL. IV PRN (18:06)
--- NOTE | 2017-03-11 18:45 | PDOC3 ---
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 She comes in with severe cough and dyspnea 3) chills. She was seen and evaluated in the ER and her chest x-ray looks like she may have a middle lobe pneumonia. Patient was very short of breath and in respiratory distress therefore she was admitted. The patient was started on antibiotics and pulmonary was consulted. She did not appear to be in heart failure. The patient has severe pulmonary hypertension. After the business office technician saw the patient they adjusted the antibiotics and today she was doing better. She has been complaining of chest pains which I think is secondary to all of the coughing causing her to have some pulled muscles and chest wall pain. Today she seems to be compensated and after the business office technician wrote the prescriptions for the antibiotics I gave her some pain medication to help with the chest pains and the patient is going to be followed as an outpatient. She has been instructed with regards to diet activity medications and follow-up. CONDITION AT DISCHARGE: Stable Scheduled Carvedilol (Carvedilol), 3.125 MG PO BID, (Reported) Clopidogrel Bisulfate (Clopidogrel), 75 MG PO DAILY, (Reported) Clopidogrel Bisulfate (Clopidogrel), 1 TAB PO DAILY, (Reported) Digoxin (Digoxin), 250 MCG PO DAILY, (Reported) Oxycodone/Apap 10-325 (Percocet 10-325 Mg Tablet), 1 TAB PO Q4-6HRS, (Reported) Pantoprazole Sodium (Protonix), 40 MG PO DAILY, (Reported) Potassium Chloride (Potassium Chloride Oral Liquid), 20 MEQ PEG DAILY, (Reported ) Torsemide (Torsemide), 1 TAB PO DAILY, (Reported) Zolpidem Tartrate (Zolpidem Tartrate), 2.5 MG PO QHS, (Reported) Scheduled PRN Hydrocodone Bit/Acetaminophen (Hydrocodone-Apap 5-325 ), 1 TAB PO PRN Q6HRS PRN for PAIN, (Reported) Miscellaneous Medications Ipratropium/Albuterol Sulfate (Combivent Respimat Inhal), 1 PUFF, (Reported) Discontinued Medications Carvedilol (Coreg), 1 TAB PO BID, (Reported) Furosemide (Furosemide), 1.5 TAB PO DAILY, (Reported) Naproxen (Naproxen), 375 MG PO DAILY, (Reported) Potassium Chloride (K-Tab ER), 40 MEQ PO DAILY, (Reported) Sildenafil Citrate (Viagra), 25 MG PO TID PRN for ELEVATED BP, SEE COMMENTS, ( Reported) Discontinued Reason: DOSE Sildenafil Citrate (Revatio), 20 MG PO TID, (Reported) Time Spent Total time spent with patient [] minutes for coordination of care, counseling, and education. ARASH PERSON MD March 11, 2017 18:45
== END 2017-03-11 18:15 | disposition home or self-care (01) | DRG 193 ==
LOC: ER 22:11 → 2 NORTH 23:42 → 2 SOUTH 03-10 11:07
PROVIDERS: ADMIT Internal Medicine Cardiovascular Disease; ATTEND Internal Medicine Cardiovascular Disease
DX: J18.9 Pneumonia, unspecified organism (principal); J96.00 Acute respiratory failure, unspecified whether with hypoxia or hypercapnia; Q20.3 Discordant ventriculoarterial connection; E78.00 Pure hypercholesterolemia, unspecified; I27.2 Other secondary pulmonary hypertension; I50.9 Heart failure, unspecified; J20.9 Acute bronchitis, unspecified; I08.1 Rheumatic disorders of both mitral and tricuspid valves; K21.9 Gastro-esophageal reflux disease without esophagitis; J45.909 Unspecified asthma, uncomplicated; Q24.9 Congenital malformation of heart, unspecified; Z95.0 Presence of cardiac pacemaker
CPT/HCPCS: 36415; 71020; 80048; 80053; 81001; 83605; 83880; 84484; 85027; 87040; 87070; 87205; 87804; 93005; 94250; 94640; 94760; 96365; 96375; J0696; J1650; J1956; J2270; J2405; J3010; J7644; 99285-25

== ENCOUNTER 2017-10-19 20:42 | Inpatient (IN) | payer OTHER, MEDICAID ==
[2017-10-19 21:02] LABS: URINE HCG POC HCG NEGATIVE (Negative)
[2017-10-19 21:33] LABS: ADD MAN DIFF? NO
[2017-10-19 21:35] LABS: BASO % 0 % (0-3); EOS # 0.4 x10^3/uL (0.0-0.7); EOS % 3 % (0-3); HEMATOCRIT 39.7 % (36.0-47.0); HEMOGLOBIN 13.2 g/dL (12.0-15.5); LYMPH # 2.2 x10^3/uL (1.0-4.8); LYMPH % 19 % (24-48); MEAN CORPUSCULAR HEMOGLOBIN 29 pg (25-35); MEAN CORPUSCULAR HGB CONC 33 g/dL (31-37); MEAN CORPUSCULAR VOLUME 88 fL (79-100); MONO # 0.8 x10^3/uL (0.0-1.1); MONO % 7 % (0-9); NEUT % 70 % (31-73); PLATELET COUNT 389 x10^3/uL (140-400); RED BLOOD COUNT 4.54 x10^6/uL (3.50-5.40); RED CELL DISTRIBUTION WIDTH 13.3 % (11.5-14.5); WHITE BLOOD COUNT 11.5 x10^3/uL (4.0-11.0)
[2017-10-19 21:36] LABS: BILIRUBIN,URINE NEGATIVE (NEG); CLARITY,URINE CLEAR; COLOR,URINE YELLOW; GLUCOSE,URINE NEGATIVE (NEG); NITRITE,URINE NEGATIVE (NEG); PROTEIN,URINE NEGATIVE (NEG-TRACE)
[2017-10-19 21:41] LABS: BACTERIA,URINE 0 /HPF (0-FEW); RBC,URINE 0 /HPF (0-2); SQUAMOUS EPITHELIAL CELL,UR MOD /LPF
[2017-10-19 21:46] LABS: ANION GAP 12 (6-14); BLOOD UREA NITROGEN 12 mg/dL (7-20); BUN/CREATININE RATIO 17 (6-20); CALCIUM 9.2 mg/dL (8.5-10.1); CARBON DIOXIDE 27 mmol/L (21-32); CHLORIDE 101 mmol/L (98-107); CREATININE 0.7 mg/dL (0.6-1.0); GFR 91.8; GLUCOSE 71 mg/dL (70-99); POTASSIUM 4.4 mmol/L (3.5-5.1); SODIUM 140 mmol/L (136-145)
[2017-10-19] MEDS: fentaNYL PF VIAL 100 MCG/2 ML VIAL IV ×2 (21:51→23:22)
[2017-10-19 21:52] LABS: ALBUMIN 4.1 g/dL (3.4-5.0); ALK PHOS 77 U/L (46-116); ALT (SGPT) 15 U/L (14-59); AST (SGOT) 13 U/L (15-37); LIPASE 80 U/L (73-393); MAGNESIUM 1.8 mg/dL (1.8-2.4); TOTAL BILIRUBIN 0.6 mg/dL (0.2-1.0); TOTAL PROTEIN 8.1 g/dL (6.4-8.2)
[2017-10-19 21:55] LABS: TROPONINI < 0.017 ng/mL (0.000-0.055)
[2017-10-19 22:01] LABS: NT-PRO BNP 343 pg/mL (0-124)
[2017-10-19 22:01] LABS: CKMB MASS 0.5 ng/mL (0.0-3.6); CREATINE KINASE 59 U/L (26-192)
[2017-10-19] MEDS: FUROSEMIDE 40 MG/4 ML VIAL. IVP (22:30)
[2017-10-19] MEDS ORDERED: IPRATRPIUM/ALBUTEROL 0.5/2.5MG 3 ML NEBU. (22:32)
[2017-10-19] MEDS: IPRATRPIUM/ALBUTEROL 0.5/2.5MG 3 ML NEBU. NEB (22:34)
[2017-10-19] MEDS: DOXYCYCLINE HYCLATE 100 MG TABLET PO (22:46)
[2017-10-20 05:05] LABS: ADD MAN DIFF? NO
[2017-10-20 05:30] LABS: BASO % 0 % (0-3); EOS # 0.3 x10^3/uL (0.0-0.7); EOS % 3 % (0-3); HEMATOCRIT 35.4 % (36.0-47.0); HEMOGLOBIN 12.1 g/dL (12.0-15.5); LYMPH # 2.2 x10^3/uL (1.0-4.8); LYMPH % 20 % (24-48); MEAN CORPUSCULAR HEMOGLOBIN 30 pg (25-35); MEAN CORPUSCULAR HGB CONC 34 g/dL (31-37); MEAN CORPUSCULAR VOLUME 86 fL (79-100); MONO # 0.8 x10^3/uL (0.0-1.1); MONO % 8 % (0-9); NEUT # 7.3 x10^3uL (1.8-7.7); NEUT % 68 % (31-73); PLATELET COUNT 321 x10^3/uL (140-400); RED BLOOD COUNT 4.09 x10^6/uL (3.50-5.40); RED CELL DISTRIBUTION WIDTH 12.9 % (11.5-14.5); WHITE BLOOD COUNT 10.6 x10^3/uL (4.0-11.0)
[2017-10-20 05:37] LABS: ALBUMIN 3.7 g/dL (3.4-5.0); ALK PHOS 66 U/L (46-116); ALT (SGPT) 14 U/L (14-59); ANION GAP 12 (6-14); AST (SGOT) 11 U/L (15-37); BLOOD UREA NITROGEN 11 mg/dL (7-20); BUN/CREATININE RATIO 22 (6-20); CALCIUM 8.6 mg/dL (8.5-10.1); CARBON DIOXIDE 24 mmol/L (21-32); CHLORIDE 102 mmol/L (98-107); CREATININE 0.5 mg/dL (0.6-1.0); GFR 135.3; GLUCOSE 93 mg/dL (70-99); POTASSIUM 4.1 mmol/L (3.5-5.1); SODIUM 138 mmol/L (136-145); TOTAL BILIRUBIN 0.5 mg/dL (0.2-1.0); TOTAL PROTEIN 7.3 g/dL (6.4-8.2)
[2017-10-20 05:58] LABS: TROPONINI < 0.017 ng/mL (0.000-0.055)
[2017-10-20] MEDS: fentaNYL PF VIAL 100 MCG/2 ML VIAL IV ×4 (07:20→21:23)
[2017-10-20] MEDS: IPRATRPIUM/ALBUTEROL 0.5/2.5MG 3 ML NEBU. NEB ×3 (07:41→19:27)
[2017-10-20] MEDS ORDERED: FLU VACC QS2017-18 (36MOS+)/PF 0.5 ML SYRINGE. VAX IM (09:00)
[2017-10-20] MEDS: DOXYCYCLINE HYCLATE 100 MG TABLET PO (09:42)
[2017-10-20] MEDS: LACTOBACILLUS RHAMNOSUS GG 1 CAPSULE. PO ×2 (09:42→21:22)
[2017-10-20 10:30] LABS: TROPONINI < 0.017 ng/mL (0.000-0.055)
[2017-10-20] MEDS: ONDANSETRON PF 4 MG/2 ML VIAL. IV ×2 (10:43→15:28)
[2017-10-20] MEDS ORDERED: BUTALB/APAP/CAFEIN 50/325/40MG TABLET. PO ×3 (15:15)
[2017-10-20] MEDS: CARVEDILOL 3.125 MG TABLET. PO (16:37)
[2017-10-20] MEDS: DIGOXIN 250 MCG TABLET. PO (16:37)
[2017-10-20] MEDS: PANTOPRAZOLE 40 MG TABLET.DR. PO (16:38)
[2017-10-20] MEDS: POTASSIUM CHLORIDE 20 MEQ/15 ML ORAL LIQUID. PO (16:38)
[2017-10-20] MEDS: TORSEMIDE 20 MG TABLET. PO (16:38)
[2017-10-20] MEDS ORDERED: CARVEDILOL 3.125 MG TABLET. PO (17:00)
[2017-10-20] MEDS: ZONISAMIDE 100 MG CAPSULE. PO (21:00)
[2017-10-20] MEDS ORDERED: ZONISAMIDE 100 MG CAPSULE. PO (21:00)
[2017-10-20] MEDS: DOXYCYCLINE HYCLATE 100 MG in IV NORMAL SALINE 100ML 100 ML IV (21:21)
[2017-10-20] MEDS: ZOLPIDEM 5 MG TABLET. PO (21:22)
[2017-10-21] MEDS ORDERED: PANTOPRAZOLE 40 MG TABLET.DR. PO (07:30)
[2017-10-21] MEDS: TORSEMIDE 20 MG TABLET. PO (08:40)
[2017-10-21] MEDS: PANTOPRAZOLE 40 MG TABLET.DR. PO (08:40)
[2017-10-21] MEDS: DIGOXIN 250 MCG TABLET. PO (08:41)
[2017-10-21] MEDS: POTASSIUM CHLORIDE 20 MEQ/15 ML ORAL LIQUID. PO (08:41)
[2017-10-21] MEDS: CARVEDILOL 3.125 MG TABLET. PO ×2 (08:41→18:01)
[2017-10-21] MEDS: DOXYCYCLINE HYCLATE 100 MG in IV NORMAL SALINE 100ML 100 ML IV ×2 (08:42→22:04)
[2017-10-21] MEDS: LACTOBACILLUS RHAMNOSUS GG 1 CAPSULE. PO ×2 (08:42→21:00)
[2017-10-21] MEDS: oxyCODONE/APAP 10/325 1 TAB TABLET PO ×2 (08:51→15:54)
[2017-10-21] MEDS ORDERED: POTASSIUM CHLORIDE 20 MEQ/15 ML ORAL LIQUID. PO (09:00)
[2017-10-21] MEDS ORDERED: DIGOXIN 250 MCG TABLET. PO (09:00)
[2017-10-21] MEDS ORDERED: TORSEMIDE 20 MG TABLET. PO (09:00)
[2017-10-21 16:40] LABS: ADD MAN DIFF? NO
[2017-10-21 16:43] LABS: BASO % 0 % (0-3); EOS # 0.5 x10^3/uL (0.0-0.7); EOS % 5 % (0-3); HEMATOCRIT 38.6 % (36.0-47.0); HEMOGLOBIN 13.2 g/dL (12.0-15.5); LYMPH # 2.3 x10^3/uL (1.0-4.8); LYMPH % 24 % (24-48); MEAN CORPUSCULAR HEMOGLOBIN 30 pg (25-35); MEAN CORPUSCULAR HGB CONC 34 g/dL (31-37); MEAN CORPUSCULAR VOLUME 87 fL (79-100); MONO # 0.7 x10^3/uL (0.0-1.1); MONO % 8 % (0-9); NEUT # 5.8 x10^3uL (1.8-7.7); NEUT % 62 % (31-73); PLATELET COUNT 375 x10^3/uL (140-400); RED BLOOD COUNT 4.46 x10^6/uL (3.50-5.40); RED CELL DISTRIBUTION WIDTH 12.8 % (11.5-14.5); WHITE BLOOD COUNT 9.4 x10^3/uL (4.0-11.0)
[2017-10-21 17:12] LABS: ALBUMIN 3.9 g/dL (3.4-5.0); ALBUMIN/GLOBULIN RATIO 0.8 (1.0-1.7); ALK PHOS 83 U/L (46-116); ALT (SGPT) 20 U/L (14-59); ANION GAP 11 (6-14); AST (SGOT) 7 U/L (15-37); BLOOD UREA NITROGEN 11 mg/dL (7-20); BUN/CREATININE RATIO 16 (6-20); CALCIUM 9.4 mg/dL (8.5-10.1); CARBON DIOXIDE 28 mmol/L (21-32); CHLORIDE 101 mmol/L (98-107); CREATININE 0.7 mg/dL (0.6-1.0); GFR 91.8; GLUCOSE 102 mg/dL (70-99); POTASSIUM 3.9 mmol/L (3.5-5.1); SODIUM 140 mmol/L (136-145); TOTAL BILIRUBIN 0.7 mg/dL (0.2-1.0); TOTAL PROTEIN 8.6 g/dL (6.4-8.2)
[2017-10-21] MEDS: methylPREDNISolone SOD SUCC PF 125 MG/2 ML VIAL. IV ×2 (18:02→22:04)
[2017-10-21] MEDS: ONDANSETRON PF 4 MG/2 ML VIAL. IV (18:45)
[2017-10-21] MEDS: IPRATRPIUM/ALBUTEROL 0.5/2.5MG 3 ML NEBU. NEB (20:11)
[2017-10-21] MEDS: ZONISAMIDE 100 MG CAPSULE. PO (21:00)
[2017-10-21] MEDS: ZOLPIDEM 5 MG TABLET. PO (22:03)
[2017-10-22] MEDS: methylPREDNISolone SOD SUCC PF 125 MG/2 ML VIAL. IV ×3 (06:23→22:15)
[2017-10-22] MEDS: IPRATRPIUM/ALBUTEROL 0.5/2.5MG 3 ML NEBU. NEB ×4 (08:02→19:57)
[2017-10-22] MEDS ORDERED: guaiFENesin DM 200MG/20MG 10 ML SYRUP PO (10:00)
[2017-10-22] MEDS: oxyCODONE/APAP 10/325 1 TAB TABLET PO ×2 (10:32→20:30)
[2017-10-22] MEDS: ONDANSETRON PF 4 MG/2 ML VIAL. IV (10:32)
[2017-10-22] MEDS: POTASSIUM CHLORIDE 20 MEQ/15 ML ORAL LIQUID. PO (10:32)
[2017-10-22] MEDS: CARVEDILOL 3.125 MG TABLET. PO ×2 (10:33→17:33)
[2017-10-22] MEDS: TORSEMIDE 20 MG TABLET. PO (10:34)
[2017-10-22] MEDS: DIGOXIN 250 MCG TABLET. PO (10:34)
[2017-10-22] MEDS: LACTOBACILLUS RHAMNOSUS GG 1 CAPSULE. PO ×2 (10:34→20:30)
[2017-10-22] MEDS: PANTOPRAZOLE 40 MG TABLET.DR. PO (10:34)
[2017-10-22] MEDS: DOXYCYCLINE HYCLATE 100 MG in IV NORMAL SALINE 100ML 100 ML IV (10:35)
[2017-10-22] MEDS: BUDESONIDE 0.5 MG/2 ML NEBU. NEB (11:47)
[2017-10-22] MEDS: guaiFENesin ORAL 200 MG/10 ML LIQUID. PO ×2 (14:24→20:31)
[2017-10-22] MEDS: fentaNYL PF VIAL 100 MCG/2 ML VIAL IV ×2 (14:25→20:37)
[2017-10-22] MEDS: DOXYCYCLINE HYCLATE 100 MG TABLET PO (20:30)
[2017-10-22] MEDS: ZOLPIDEM 5 MG TABLET. PO (20:30)
[2017-10-22] MEDS: ZONISAMIDE 100 MG CAPSULE. PO (20:32)
[2017-10-23] MEDS: fentaNYL PF VIAL 100 MCG/2 ML VIAL IV ×4 (03:20→22:26)
[2017-10-23] MEDS: guaiFENesin ORAL 200 MG/10 ML LIQUID. PO ×4 (03:20→22:26)
[2017-10-23] MEDS: oxyCODONE/APAP 10/325 1 TAB TABLET PO ×4 (03:21→22:27)
[2017-10-23] MEDS: methylPREDNISolone SOD SUCC PF 125 MG/2 ML VIAL. IV ×3 (06:27→22:26)
[2017-10-23] MEDS: BUDESONIDE 0.5 MG/2 ML NEBU. NEB ×2 (07:50→19:51)
[2017-10-23] MEDS: IPRATRPIUM/ALBUTEROL 0.5/2.5MG 3 ML NEBU. NEB ×4 (07:51→19:51)
[2017-10-23] MEDS: PANTOPRAZOLE 40 MG TABLET.DR. PO (09:06)
[2017-10-23] MEDS: DOXYCYCLINE HYCLATE 100 MG TABLET PO ×2 (09:07→20:35)
[2017-10-23] MEDS: CARVEDILOL 3.125 MG TABLET. PO ×2 (09:07→16:24)
[2017-10-23] MEDS: LACTOBACILLUS RHAMNOSUS GG 1 CAPSULE. PO ×2 (09:07→20:35)
[2017-10-23] MEDS: DIGOXIN 250 MCG TABLET. PO (09:08)
[2017-10-23] MEDS: POTASSIUM CHLORIDE 20 MEQ/15 ML ORAL LIQUID. PO (09:08)
[2017-10-23] MEDS: TORSEMIDE 20 MG TABLET. PO (09:08)
[2017-10-23] MEDS: ZONISAMIDE 100 MG CAPSULE. PO (20:14)
[2017-10-23] MEDS: ZOLPIDEM 5 MG TABLET. PO (20:35)
[2017-10-23] MEDS: ONDANSETRON PF 4 MG/2 ML VIAL. IV (20:36)
[2017-10-24] MEDS: methylPREDNISolone SOD SUCC PF 125 MG/2 ML VIAL. IV ×3 (06:37→21:33)
[2017-10-24] MEDS: IPRATRPIUM/ALBUTEROL 0.5/2.5MG 3 ML NEBU. NEB ×4 (07:00→19:31)
[2017-10-24] MEDS: BUDESONIDE 0.5 MG/2 ML NEBU. NEB ×2 (07:00→19:31)
[2017-10-24] MEDS: TORSEMIDE 20 MG TABLET. PO (08:58)
[2017-10-24] MEDS: oxyCODONE/APAP 10/325 1 TAB TABLET PO ×3 (08:58→21:34)
[2017-10-24] MEDS: POTASSIUM CHLORIDE 20 MEQ/15 ML ORAL LIQUID. PO (08:58)
[2017-10-24] MEDS: PANTOPRAZOLE 40 MG TABLET.DR. PO (08:58)
[2017-10-24] MEDS: DOXYCYCLINE HYCLATE 100 MG TABLET PO ×2 (08:58→21:33)
[2017-10-24] MEDS: LACTOBACILLUS RHAMNOSUS GG 1 CAPSULE. PO ×2 (08:58→21:33)
[2017-10-24] MEDS: DIGOXIN 250 MCG TABLET. PO (08:58)
[2017-10-24] MEDS: CARVEDILOL 3.125 MG TABLET. PO ×2 (08:59→17:44)
[2017-10-24] MEDS: guaiFENesin ORAL 200 MG/10 ML LIQUID. PO (08:59)
[2017-10-24] MEDS: fentaNYL PF VIAL 100 MCG/2 ML VIAL IV ×2 (09:00→19:37)
[2017-10-24] MEDS: ONDANSETRON PF 4 MG/2 ML VIAL. IV (13:53)
[2017-10-24] MEDS: HYDROcodone/APAP 5/325MG 1 TAB TABLET PO (19:37)
[2017-10-24] MEDS: ZONISAMIDE 100 MG CAPSULE. PO (21:00)
[2017-10-24] MEDS: ZOLPIDEM 5 MG TABLET. PO (21:34)
[2017-10-25] MEDS: oxyCODONE/APAP 10/325 1 TAB TABLET PO ×3 (03:43→23:06)
[2017-10-25] MEDS: BUDESONIDE 0.5 MG/2 ML NEBU. NEB ×2 (08:09→20:59)
[2017-10-25] MEDS: IPRATRPIUM/ALBUTEROL 0.5/2.5MG 3 ML NEBU. NEB ×4 (08:09→20:59)
[2017-10-25] MEDS: methylPREDNISolone SOD SUCC PF 125 MG/2 ML VIAL. IV (08:21)
[2017-10-25] MEDS: DOXYCYCLINE HYCLATE 100 MG TABLET PO ×2 (08:21→21:12)
[2017-10-25] MEDS: LACTOBACILLUS RHAMNOSUS GG 1 CAPSULE. PO ×2 (08:21→21:11)
[2017-10-25] MEDS: TORSEMIDE 20 MG TABLET. PO (08:22)
[2017-10-25] MEDS: CARVEDILOL 3.125 MG TABLET. PO ×2 (08:22→16:29)
[2017-10-25] MEDS: DIGOXIN 250 MCG TABLET. PO (08:22)
[2017-10-25] MEDS: PANTOPRAZOLE 40 MG TABLET.DR. PO (08:22)
[2017-10-25] MEDS: POTASSIUM CHLORIDE 20 MEQ/15 ML ORAL LIQUID. PO (08:24)
[2017-10-25] MEDS: HYDROcodone/APAP 5/325MG 1 TAB TABLET PO ×2 (08:30→19:52)
[2017-10-25] MEDS: fentaNYL PF VIAL 100 MCG/2 ML VIAL IV ×2 (08:30→19:53)
[2017-10-25] MEDS: ZOLPIDEM 5 MG TABLET. PO (21:12)
[2017-10-26] MEDS: HYDROcodone/APAP 5/325MG 1 TAB TABLET PO (05:32)
[2017-10-26] MEDS: fentaNYL PF VIAL 100 MCG/2 ML VIAL IV (05:33)
[2017-10-26] MEDS: BUDESONIDE 0.5 MG/2 ML NEBU. NEB (08:04)
[2017-10-26] MEDS: IPRATRPIUM/ALBUTEROL 0.5/2.5MG 3 ML NEBU. NEB ×3 (08:04→16:00)
[2017-10-26] MEDS: POTASSIUM CHLORIDE 20 MEQ/15 ML ORAL LIQUID. PO (09:19)
[2017-10-26] MEDS: LACTOBACILLUS RHAMNOSUS GG 1 CAPSULE. PO (09:19)
[2017-10-26] MEDS: oxyCODONE/APAP 10/325 1 TAB TABLET PO (09:20)
[2017-10-26] MEDS: PANTOPRAZOLE 40 MG TABLET.DR. PO (09:20)
[2017-10-26] MEDS: CARVEDILOL 3.125 MG TABLET. PO (09:20)
[2017-10-26] MEDS: TORSEMIDE 20 MG TABLET. PO (09:20)
[2017-10-26] MEDS: DOXYCYCLINE HYCLATE 100 MG TABLET PO (09:20)
[2017-10-26] MEDS: DIGOXIN 250 MCG TABLET. PO (09:20)
== END 2017-10-26 17:29 | disposition home or self-care (01) | DRG 202 ==
LOC: ER 20:42 → 2 NORTH 22:18
PROVIDERS: Internal Medicine Cardiovascular Disease
DX: J20.9 Acute bronchitis, unspecified (principal); I50.33 Acute on chronic diastolic (congestive) heart failure; I27.20 Pulmonary hypertension, unspecified; I50.9 Heart failure, unspecified; B34.9 Viral infection, unspecified; G43.909 Migraine, unspecified, not intractable, without status migrainosus; J45.909 Unspecified asthma, uncomplicated; K21.9 Gastro-esophageal reflux disease without esophagitis; Q24.9 Congenital malformation of heart, unspecified
CPT/HCPCS: 36415; 71010; 71020; 80053; 81001; 81025; 82553; 83690; 83735; 83880; 84484; 85025; 85610; 93005; 94620; 94640; 94760; 97161-GP; 99285; J2405; J2930; J3010; J3490; J7620; J7626